=== PATIENT | female | born 1950 | race African-American/Black ===

== ENCOUNTER → 2019-08-13 | Outpatient (CLI) | payer MEDICARE, OTHER ==
--- NOTE | 2019-08-13 13:23 | RAD ---
CLINICAL HISTORY: Right leg pain COMPARISON: None available. TECHNIQUE: Ultrasound evaluation of the right lower extremity was performed from the groin to the upper calf with arreaga scale, spectral and color doppler evaluation. FINDINGS: The right common femoral vein, and femoral vein, including the saphenous-femoral junction are normal in appearance. Color and spectral Doppler evaluation demonstrates normal spontaneous flow, augmentation and phasicity. The right popliteal vein and visualized calf veins also demonstrate normal compressibility and flow. Cystic structure in the right popliteal fossa may represent Llamas's cyst. IMPRESSION: 1. No evidence for DVT in the right lower extremity. 2. Small cystic structure right popliteal fossa, likely Llamas's cyst Electronically signed by: Angel Montelongo MD (08/13/2019 1:21 PM) [facility]
== END | disposition home or self-care (01) ==
LOC: US 12:04
PROVIDERS: ATTEND Family Medicine
DX: M79.604 Pain in right leg (principal); M79.89 Other specified soft tissue disorders
CPT/HCPCS: 93971

== ENCOUNTER 2021-01-30 19:52 | Emergency (ER) | payer MEDICARE, OTHER ==
[~2021-01-30] VITALS: Ht 160 cm; Wt 102.0 kg
--- NOTE | 2021-01-30 20:15 | PHYS DOC ---
Past Medical History Past Medical History: Diverticulosis General Adult EDM: Chief Complaint: MULTIPLE COMPLAINTS HPI: HPI: Patient is a 70 year old female with history of diverticulitis presenting today complaining of moderate lower abdominal pain, symptoms for over 1 week. Patient describes the pain as sharp and intermittent. Denies anything specifically exacerbating or relieving the pain. She states on Saturday last week she was seen at urgent care and was given Cipro and Flagyl. She states she had concerns about taking both medicines and contacted her PCP who requested her to take Cipro only. She is also complaining of left flank pain for about 1 week. Denies any urgency, frequency or dysuria. Review of Systems: Review of Systems: No constitutional: Denies fever or chills. [] Eyes: Denies change in visual acuity. [] HENT: Denies nasal congestion or sore throat. [] Respiratory: Denies cough or shortness of breath. [] Cardiovascular: Denies chest pain or edema. [] GI: Reports lower abdominal pain, denies nausea, vomiting, bloody stools or diarrhea. [] : Reports left flank pain. Denies dysuria. [] Musculoskeletal: Denies back pain or joint pain. [] Integument: Denies rash. [] Neurologic: Denies headache, focal weakness or sensory changes. [] Psychiatric: Denies depression or anxiety. [] Heart Score: C/O Chest Pain: N/A Risk Factors: Risk Factors: DM, Current or recent (<one month) smoker, HTN, HLP, family history of CAD, obesity. Risk Scores: Score 0 - 3: 2.5% MACE over next 6 weeks - Discharge Home Score 4 - 6: 20.3% MACE over next 6 weeks - Admit for Clinical Observation Score 7 - 10: 72.7% MACE over next 6 weeks - Early Invasive Strategies Current Medications: Current Medications Medications (Trade) Dose Ordered Sig/Jimmy Start Time Stop Time Status Last Admin Dose Admin Morphine Sulfate (Morphine Sulfate) 5 mg 1X ONCE 01/30/21 20:15 01/30/21 20:16 UNV Sodium Chloride 1,000 ml @ 1,000 mls/hr 1X ONCE 01/30/21 20:15 01/30/21 21:14 UNV Physical Exam: PE: Constitutional: Well developed, well nourished, no acute distress, non-toxic appearance. [] HENT: Normocephalic, atraumatic, bilateral external ears normal, oropharynx moist, no oral exudates, nose normal. [] Eyes: PERRLA, EOMI, conjunctiva normal, no discharge. [] Neck: Normal range of motion, no tenderness, supple, no stridor. [] Cardiovascular:Heart rate regular rhythm, no murmur [] Lungs & Thorax: Bilateral breath sounds clear to auscultation [] Abdomen: Old healed surgical incision noted midline lower abdomen. Bowel sounds normal, soft, mid abdominal tenderness on exam, no masses, no pulsatile masses. [] Skin: Warm, dry, no erythema, no rash. [] Back: No tenderness, no CVA tenderness. [] Extremities: No tenderness, no cyanosis, no clubbing, ROM intact, no edema. [] Neurologic: Alert and oriented X 3, normal motor function, normal sensory function, no focal deficits noted. [] Psychologic: Affect normal, judgement normal, mood normal. [] EKG: EKG: [] Radiology/Procedures: Radiology/Procedures: []PROCEDURE: CT ABDOMEN PELVIS WO CONTRAST CT abdomen pelvis without contrast dated 01/30/2021. No comparison available. CLINICAL INDICATION: Abdominal pain and flank pain. TECHNIQUE: Contiguous axial imaging of the abdomen pelvis performed without the administration of IV or oral contrast. One or more of the following individualized dose reduction techniques were utilized for this examination: 1. Automated exposure control 2. Adjustment of the mA and/or kV according to patient size 3. Use of iterative reconstruction technique. FINDINGS: Limited images of lung bases are clear. Heart size within normal limits. No pleural or pericardial effusion. Solid abdominal viscera not well evaluated in the absence of contrast material. No apparent attenuation abnormality of the liver or spleen. Gallbladder surgically absent. Pancreas, adrenal glands and kidneys are unremarkable. No stone or hydro nephrosis. Kidneys appear somewhat malrotated. Unopacified GI tract normal in caliber and contour. No focal bowel wall thickeni ng. Scattered diverticula throughout the colon. No paracolonic inflammatory changes. No free fluid or lymphadenopathy. Appendix normal in caliber. Images of pelvis show nondistended urinary bladder. Uterus is not well visualized and may be surgically absent. No free fluid or lymphadenopathy. The ovaries are not well evaluated. Bone windows show no acute findings. Multilevel spondylosis. IMPRESSION: 1. No acute abnormality of abdomen or pelvis. Normal appendix. 2. Diverticulosis with no evidence of acute diverticulitis. 3. Status post cholecystectomy and hysterectomy. Electronically signed by: Behzad Case MD (01/30/2021 9:00 PM) [facility] DICTATED and SIGNED BY: BEHZAD CASE MD DATE: 01/30/21 [id number] 0 Course & Med Decision Making: Course & Med Decision Making Pertinent Labs and Imaging studies reviewed. (See chart for details) This is a 70-year-old female patient presented to the ED today with lower abdominal pain and left flank pain, symptoms for more than 1 week. Patient was seen at urgent care and started on Cipro and Flagyl. She was stopped from taking Flagyl by the PCP but she is currently on Cipro. UA is negative for infection, CBC CMP with no acute findings, CT of the abdomen and pelvic was negative for any acute findings, noted for diverticulosis. Patient was discharged to home. Encouraged to continue taking her medications specifically Cipro to completion. Dragon Disclaimer: Leeanne Disclaimer: This electronic medical record was generated, in whole or in part, using a voice recognition dictation system. Departure Departure Impression: Primary Impression: Diverticulosis Additional Impression: Lower abdominal pain Disposition: DC HOME SELF CARE/HOMELESS Condition: STABLE Referrals: LEXIS ANDRADE (PCP) follow up in 1 week Patient Instructions: Abdominal Pain, Diverticulosis Additional Instructions: You were evaluated in the emergency room, your CAT scan of the abdomen and pelvic was negative for any acute findings, you were noted to have diverticulosis on ct of the abdomen and pelvis otherwise no diverticulitis. Your lab work was negative for any acute findings including your urine being negative for infection. Please follow-up with your primary care doctor. Please complete your Cipro. Scripts Hydrocodone Bit/Acetaminophen (HYDROCODONE-APAP 5-325 ) 1 Tab Tablet 1 TAB PO PRN Q6HRS PRN for PAIN, #10 TAB 0 Refills Prov: BUBBA LYLE HEAD WAITER/WAITRESS 01/30/21 Dicyclomine Hcl (DICYCLOMINE HCL) 20 Mg Tablet 1 TAB PO TID, #30 TAB 1 Refill Prov: BUBBA LYLE HEAD WAITER/WAITRESS 01/30/21 BUBBA LYLE HEAD WAITER/WAITRESS Jan 30, 2021 20:15
[2021-01-30 20:17] LABS: BILIRUBIN,URINE NEGATIVE (NEG); CLARITY,URINE CLEAR; NITRITE,URINE NEGATIVE (NEG); PROTEIN,URINE NEGATIVE (NEG-TRACE); UROBILINOGEN,URINE 0.2 mg/dL (0.2 mg/dL)
[2021-01-30 20:22] LABS: COLOR,URINE STRAW
[2021-01-30 20:23] LABS: BASO # 0.1 x10^3/uL (0.0-0.2); BASO % 1 % (0-3); EOS # 0.2 x10^3/uL (0.0-0.7); EOS % 2 % (0-3); HEMATOCRIT 40.7 % (36.0-47.0); HEMOGLOBIN 13.8 g/dL (12.0-15.5); LYMPH # 3.1 x10^3/uL (1.0-4.8); LYMPH % 37 % (24-48); MEAN CORPUSCULAR HEMOGLOBIN 29 pg (25-35); MEAN CORPUSCULAR HGB CONC 34 g/dL (31-37); MEAN CORPUSCULAR VOLUME 86 fL (79-100); MONO # 0.7 x10^3/uL (0.0-1.1); MONO % 8 % (0-9); NEUT # 4.5 x10^3/uL (1.8-7.7); NEUT % 53 % (31-73); PLATELET COUNT 438 x10^3/uL (140-400); RED BLOOD COUNT 4.76 x10^6/uL (3.50-5.40); RED CELL DISTRIBUTION WIDTH 13.3 % (11.5-14.5); WHITE BLOOD COUNT 8.5 x10^3/uL (4.0-11.0)
[2021-01-30 20:24] LABS: BACTERIA,URINE 0 /HPF (0-FEW); RBC,URINE 0 /HPF (0-2); WBC,URINE 0 /HPF (0-4)
[2021-01-30 20:26] LABS: AMPHETAMINE/METHAMPHETAMINE NEG (NEG); BARBITURATES NEG (NEG); BENZODIAZEPINES NEG (NEG); CANNABINOIDS NEG (NEG); COCAINE NEG (NEG); METHADONE NEG (NEG); OPIATES NEG (NEG); PHENCYCLIDINE NEG (NEG)
[2021-01-30] MEDS ORDERED: MORPHINE SULFATE 10 MG/ML VIAL. IV ONE ×2 (20:30→22:00)
[2021-01-30] MEDS ORDERED: IV NORMAL SALINE 1000ML BAG 1,000 ML IV ONE (20:30)
[2021-01-30 20:34] LABS: CALCIUM 9.4 mg/dL (8.5-10.1); CREATININE 1.2 mg/dL (0.6-1.0); GFR 53.4; POTASSIUM 3.6 mmol/L (3.5-5.1)
[2021-01-30 20:40] LABS: ALBUMIN 3.6 g/dL (3.4-5.0); ALBUMIN/GLOBULIN RATIO 0.9 (1.0-1.7); TOTAL BILIRUBIN 0.3 mg/dL (0.2-1.0); TOTAL PROTEIN 7.7 g/dL (6.4-8.2)
--- NOTE | 2021-01-30 21:02 | RAD ---
CT abdomen pelvis without contrast dated 01/30/2021. No comparison available. CLINICAL INDICATION: Abdominal pain and flank pain. TECHNIQUE: Contiguous axial imaging of the abdomen pelvis performed without the administration of IV or oral con trast. One or more of the following individualized dose reduction techniques were utilized for this examinat ion: 1. Automated exposure control 2. Adjustment of the mA and/or kV according to patient size 3. Use of iterative reconstruction technique. FINDINGS: Limited images of lung bases are clear. Heart size within normal limits. No pleural or pericardial ef fusion. Solid abdominal viscera not well evaluated in the absence of contrast material. No apparent attenuati on abnormality of the liver or spleen. Gallbladder surgically absent. Pancreas, adrenal glands and kidneys are unremarkable. No stone or hydronephrosis. Kidneys appear noemy ewhat malrotated. Unopacified GI tract normal in caliber and contour. No focal bowel wall thickening. Scattered diverti cula throughout the colon. No paracolonic inflammatory changes. No free fluid or lymphadenopathy. Maggie endix normal in caliber. Images of pelvis show nondistended urinary bladder. Uterus is not well visualized and may be surgical ly absent. No free fluid or lymphadenopathy. The ovaries are not well evaluated. Bone windows show no acute findings. Multilevel spondylosis. IMPRESSION: 1. No acute abnormality of abdomen or pelvis. Normal appendix. 2. Diverticulosis with no evidence of acute diverticulitis. 3. Status post cholecystectomy and hysterectomy. Electronically signed by: Behzad Case MD (01/30/2021 9:00 PM) [facility]
[2021-01-30] MEDS ORDERED: DICY20TA3 PO (21:32)
[2021-01-30] MEDS ORDERED: HYDR-2761 PO (21:33)
[2021-01-30 22:10] VITALS: BP 162/70
== END 2021-01-30 22:12 | disposition home or self-care (01) ==
LOC: ER 19:52
DX: K57.90 Diverticulosis of intestine, part unspecified, without perforation or abscess without bleeding (principal); R10.32 Left lower quadrant pain
CPT/HCPCS: 36415; 74176; 80053; 80307; 81001; 83690; 85025; 96361; 96374; 96376; 99285; G0480; J2270; J7030